=== PATIENT | male | born 2000 | race Caucasian/White ===

== ENCOUNTER 2020-02-11 16:28 | Emergency (ER) | payer BC ==
[~2020-02-11] VITALS: Ht 172.7 cm; Wt 77.1 kg
[2020-02-11 17:02] VITALS: BP 128/71
--- NOTE | 2020-02-11 17:03 | NUR ---
Patient discharged to home in stable condition. Written and verbal after care instructions given. Patient verbalizes understanding of instruction. Patient was advised to follow up with ENT within 24 hours. Patient speaks in full sentences and denies SOB.
== END 2020-02-11 17:04 | disposition home or self-care (01) ==
LOC: ER 16:40
DX: T17.298A Other foreign object in pharynx causing other injury, initial encounter (principal); X58.XXXA Exposure to other specified factors, initial encounter; Y93.89 Activity, other specified; Y92.89 Other specified places as the place of occurrence of the external cause; Y99.8 Other external cause status